=== PATIENT | female | born 1980 | race Caucasian/White ===

== ENCOUNTER → 2021-12-20 | Outpatient (CLI) | payer BC ==
[2021-12-20 12:23] VITALS: BP 145/89; PULSE 88; RESP 17; TEMP 98.8
--- NOTE | 2021-12-20 13:04 | P.GSHP ---
History of Present Illness H&P Date: 12/20/21 Chief Complaint: abnormal left breast mammogram Jessika is a 41 year old white female seen in consultation for Shobha Aragon with a recent bilateral mammogram showing an abnormality in the left breast. She does not feel anything of concern in either breast. She did have a mastitis following the of her son approximately 14 years ago. She does not complain of any nipple discharge or skin changes. She has never had any surgery on either breast. She is not complaining of any trauma or infection in the breast. Caffeine: 1 diet coke/day nicotine: none chocolate: occasional BCP: 10 years in 20's Family History: maternal grandmother: breast cancer, in her 40's Hormonal History: menarche: 9 , breast fed: yes, age at first : 24 periods regular, LMP last week hormones: none Surgical History: none Medical History: none Social History: nicotine: none; parents smoked when growing up alcohol: occasional drugs: none - Constitutional Constitutional: Denies chills, Denies fever - EENT Eyes: denies blurred vision, denies pain Ears: deny: decreased hearing, tinnitus Ears, nose, mouth and throat: Denies headache, Denies sore throat - Breasts Breasts: bilateral: as per HPI - Respiratory Respiratory: Denies cough, Denies 7 - Gastrointestinal Gastrointestinal: Denies abdominal pain, Denies diarrhea, Denies nausea, Denies vomiting - Genitourinary (Female) Genitourinary: Denies dysuria, Denies hematuria - Menstruation Menstruation: Reports period normal - Musculoskeletal Musculoskeletal: Denies myalgias - Integumentary Integumentary: Denies pruritus, Denies rash - Neurological Neurological: Denies numbness, Denies weakness - Psychiatric Psychiatric: Denies anxiety, Denies depression - Endocrine Endocrine: Denies fatigue, Denies weight change - Hematologic/Lymphatic Comment: none - Allergic/Immunologic Allergic/Immunologic: Reports as per HPI Past Medical History Past Medical History: No Reported History History of Any Multi-Drug Resistant Organisms: None Reported Past Surgical History: No Surgical Hx Reported Past Anesthesia/Blood Transfusion Reactions: No Reported Reaction Additional Past Anesthesia/Blood Transfusion Reaction / Comment(s): No blood transfusion to date (12/11/21) Past Psychological History: No Psychological Hx Reported Smoking Status: Never smoker Past Alcohol Use History: Rare Past Drug Use History: None Reported - Past Family History Mother Additional Family Medical History / Comment(s): maternal grandmother in age 40s from breast cancer Medications and Allergies Home Medications Medication Instructions Recorded Confirmed Type Multivit with Calcium,Iron,Min 1 each PO DAILY 12/11/21 12/20/21 History [Women's Multivitamin] Zinc Sulfate [Orazinc] 25 mg PO DAILY 12/11/21 12/20/21 History Allergies Allergy/AdvReac Type Severity Reaction Status Date / Time No Known Allergies Allergy Verified 12/20/21 12:15 Surgical - Exam Vital Signs Temp Pulse Resp BP 98.8 F 88 17 145/89 12/20/21 12:16 12/20/21 12:16 12/20/21 12:16 12/20/21 12:16 BMI 37.2 - General moderate distress - Eyes normal ocular movement - Neck trachea midline - Respiratory normal respiratory effort, clear to auscultation - Cardiovascular Rhythm: regular Heart Sounds: normal: S1, S2 - Abdomen Abdomen: soft - Integumentary normal turgor - Neurologic no disoriented, no combative - Musculoskeletal normal gait - Psychiatric oriented to time, oriented to person, oriented to place, speech is normal, memory intact Breast Exam: BRA: 38DDD inspection: Bilateral grade 3 ptosis, fungal infection under right breast Palpation: Right breast: Multi-positional exam fibrocystic changes no dominant masses or nodules of concern Right axilla: No adenopathy of concern Left breast: Multi-positional exam fibrocystic changes no dominant masses or nodules of concern Left axilla: No adenopathy of concern Assessment and Plan Assessment: Impression: Radiographic abnormality left breast for which stereotactic biopsy is recommended Fibrocystic breast changes Macromastia Family history of breast cancer Plan: Stereotactic core biopsy left breast Risks and benefits of the procedure discussed with the patient. Risks include but are not limited to bleeding, infection, reaction to the anesthetic. The patient understands that if the findings were to be discordant further biopsy could be recommended. Alternatives such as watchful waiting or resection the operating room are noted but not recommended. CC: Shobha Aragon
== END ==
LOC: WWCWWP 11:45
PROVIDERS: ATTEND Surgery
DX: N60.12 Diffuse cystic mastopathy of left breast (principal); N62 Hypertrophy of breast; Z80.3 Family history of malignant neoplasm of breast

== ENCOUNTER → 2021-12-21 | Day surgery (SDC) | payer BC ==
[2021-12-21 07:21] VITALS: RESP 16
[2021-12-21 09:28] VITALS: BP 122/80; PULSE 80; TEMP 98.5
--- NOTE | 2021-12-21 13:04 | P.PCN ---
Date of Procedure: 12/21/21 Preoperative Diagnosis: Microcalcifications of concern left breast 2 o'clock position posteriorly Postoperative Diagnosis: Same Procedure(s) Performed: Stereotactic core biopsy microcalcifications of concern posterior left breast 2 o'clock position Anesthesia: local Surgeon: Liliya Prajapati Disposition: same day Indications for Procedure: Microcalcifications of concern left breast posterior position at 2:00 Operative Findings: Radiograph of initial specimen did not reveal the calcifications of concern and therefore additional specimens were taken again the calcifications of concern were not seen with certainty the patient was retargeted and the calcifications of concern were noted to be in the specimen Description of Procedure: Jessika is a 41-year-old white female who The screening mammogram was noted to have calcifications of concern in the 2:00 posterior position of the left breast. This had increased in number and stereotactic core biopsy was recommended with a 6 month diagnostic mammogram of the more anteriorly placed calcifications at 2:00. Risk and benefits of the procedure were discussed with the patient and she wished to proceed with stereotactic core biopsy. Risks include but are not limited to bleeding, infection, reaction to the anesthetic. Alternatives such as watchful waiting for resection the operating room were noted but not recommended. The patient was taken to the [facility] core biopsy room. She was placed prone on the lo-rad table. A CC from above approach was utilized. A manager science film was obtained. The calcifications of concern were identified. These were targeted. The breast was prepped using Betadine and 20 mL of 1% lidocaine were used to anesthetize the area of concern. A 9-gauge vacuum-assisted core rotating biopsy needle was driven to the correct coordinates. A prefire film was a taken and the needle was noted to be in the correct location. The needle was fired. Post fire film again revealed the needle to be in the correct location. Core biopsy specimens were obtained. Only 1 small calcification was noted in the specimen and it was felt that the area had not been adequately sampled. The needle was repositioned and additional core biopsies were obtained but again it was felt that the area was not adequately sampled, as no additional calcifications were noted in the specimen. A tri-juliana Top-Hat clip was placed. The clip did however, appear to be in the vicinity of calcifications. Following this secondary to concern that the area had not been adequately sampled an additional manager science film was obtained. The calcifications of concern were noted. The calcifications of concern were again targeted. The breast was again prepped using Betadine. This time approximately 14 mL of 1% lidocaine were used to anesthetize the area of concern. 9-gauge vacuum-assisted core rotated biopsy needle was driven to the correct coordinates. Prefire film was obtained and the needle appeared to be in the correct location. The needle was fired and a post-fire film was obtained showing the needle in the correct location. Specimens were obtained. Radiograph of the specimen did reveal the calcifications of concern. A tri-juliana clip was placed. The location of the tri-juliana clip appeared to be in the vicinity where the calcifications of concern about sampled. Specimens were sent for pathology. The patient will follow-up with Dr. Aleman next week.
--- NOTE | 2021-12-21 13:37 | MM ---
Jessika is a 41-year-old white female who The screening mammogram was noted to have calcifications of concern in the 2:00 posterior position of the left breast. This had increased in number and stereotactic core biopsy was recommended with a 6 month diagnostic mammogram of the more anteriorly placed calcifications at 2:00. Risk and benefits of the procedure were discussed with the patient and she wished to proceed with stereotactic core biopsy. Risks include but are not limited to bleeding, infection, reaction to the anesthetic. Alternatives such as watchful waiting for resection the operating room were noted but not recommended. The patient was taken to the [facility] core biopsy room. She was placed prone on the lo-rad table. A CC from above approach was utilized. A clip loading machine feeder film was obtained. The calcifications of concern were identified. These were targeted. The breast was prepped using Betadine and 20 mL of 1% lidocaine were used to anesthetize the area of concern. A 9-gauge vacuum-assisted core rotating biopsy needle was driven to the correct coordinates. A prefire film was a taken and the needle was noted to be in the correct location. The needle was fired. Post fire film again revealed the needle to be in the correct location. Core biopsy specimens were obtained. Only 1 small calcification was noted in the specimen and it was felt that the area had not been adequately sampled. The needle was repositioned and additional core biopsies were obtained but again it was felt that the area was not adequately sampled, as no additional calcifications were noted in the specimen. A tri-juliana Top-Hat clip was placed. The clip did however, appear to be in the vicinity of calcifications. Following this secondary to concern that the area had not been adequately sampled an additional clip loading machine feeder film was obtained. The calcifications of concern were noted. The calcifications of concern were again targeted. The breast was again prepped using Betadine. This time approximately 14 mL of 1% lidocaine were used to anesthetize the area of concern. 9-gauge vacuum-assisted core rotated biopsy needle was driven to the correct coordinates. Prefire film was obtained and the needle appeared to be in the correct location. The needle was fired and a post-fire film was obtained showing the needle in the correct location. Specimens were obtained. Radiograph of the specimen did reveal the calcifications of concern. A tri-juliana clip was placed. The location of the tri-juliana clip appeared to be in the vicinity where the calcifications of concern about sampled. Specimens were sent for pathology. The patient will follow-up with Dr. Aleman next week. BEATRICE
== END ==
LOC: RADMAMWWP 06:50
PROVIDERS: ATTEND Surgery
DX: N60.12 Diffuse cystic mastopathy of left breast (principal); R92.1 Mammographic calcification found on diagnostic imaging of breast
CPT/HCPCS: 19081; A4648; J2001; 88305

== ENCOUNTER → 2021-12-27 | Outpatient (CLI) | payer BC ==
[2021-12-27 10:50] VITALS: BP 131/86; PULSE 92; RESP 16; TEMP 98.2
--- NOTE | 2021-12-27 11:05 | P.PN ---
Subjective Progress Note Date: 12/27/21 Principal diagnosis: fat necrosis of the left breast Jessika is a 41 year old female status post stero biopsy of the left breast on 12-21-21. Pathology showed fibrocystic changes site A, and fat necrosis/scar at site B with calcifications. This was felt to be benign specific. She tolerated the procedure without difficulty. Objective - Vital Signs Vital signs: Vital Signs Temp 98.2 F 12/27/21 10:44 Pulse 92 12/27/21 10:44 Resp 16 12/27/21 10:44 BP 131/86 12/27/21 10:44 Pulse Ox 97 12/27/21 10:44 Intake & Output 12/26/21 12/27/21 12/27/21 18:59 06:59 18:59 Weight 95.254 kg - Constitutional General appearance: Present: cooperative - EENT Eyes: Present: edentulous ENT: Present: hearing grossly normal - Neck Neck: Present: normal ROM - Respiratory Respiratory: bilateral: CTA - Cardiovascular Rhythm: regular Heart sounds: normal: S1, S2 - Integumentary Integumentary Comment(s): Abscesses site left breast mild ecchymosis, no evidence of hematoma or infection Assessment and Plan Assessment: Impression: Patient status post stereotactic core biopsy left breast fibrocystic changes/fat necrosis/scar no evidence of malignancy Plan: Left breast repeat mammogram in 6 months with a physician exam at that time CC: Shobha Castelan
== END ==
LOC: WWCWWP 10:35
PROVIDERS: ATTEND Surgery
DX: N60.12 Diffuse cystic mastopathy of left breast (principal); N64.1 Fat necrosis of breast; R92.1 Mammographic calcification found on diagnostic imaging of breast

== ENCOUNTER 2022-02-08 06:56 | Day surgery (SDC) | payer BC ==
[2022-02-05 12:20] VITALS: BMI 38.9
--- NOTE | 2022-02-07 19:28 | P.GSHP ---
History of Present Illness H&P Date: 02/07/22 Chief Complaint: Left renal colic The patient is a 41-year-old white female with no prior history of urolithiasis. Earlier this month, she began to experience left flank discomfort which became severe on 01/31/2022. CT scan at that time showed moderate to severe left hydronephrosis due to an 8 x 10 mm left proximal ureteral calculus. There was also evidence of mild right hydronephrosis. No right-sided calculi were seen. Treatment options include medical expulsion therapy, extracorporal shockwave lithotripsy (ESWL), and ureteroscopy with laser lithotripsy. She has elected to undergo the latter. - Constitutional Constitutional: Denies chills, Denies fever - Gastrointestinal Gastrointestinal: Reports nausea, Reports vomiting - Genitourinary (Female) Genitourinary: Reports flank pain, Reports kidney stones, Denies dysuria, Denies hematuria Past Medical History Past Medical History: No Reported History Additional Past Medical History / Comment(s): KIDNEY STONES History of Any Multi-Drug Resistant Organisms: None Reported Past Surgical History: No Surgical Hx Reported Additional Past Surgical History / Comment(s): left breast stereotactic core biopsy 12/2021 Past Anesthesia/Blood Transfusion Reactions: No Reported Reaction Additional Past Anesthesia/Blood Transfusion Reaction / Comment(s): No blood transfusion to date (12/11/21) Smoking Status: Never smoker - Past Family History Mother Family Medical History: No Reported History Additional Family Medical History / Comment(s): maternal grandmother in age 40s from breast cancer Medications and Allergies Home Medications Medication Instructions Recorded Confirmed Type Multivit with Calcium,Iron,Min 1 each PO DAILY 12/11/21 02/05/22 History [Women's Multivitamin] HYDROcodone/APAP 5-325MG [Ohlman 1 tab PO Q6HR PRN 02/05/22 02/05/22 History 5-325] Allergies Allergy/AdvReac Type Severity Reaction Status Date / Time No Known Allergies Allergy Verified 02/05/22 12:14 Surgical - Exam - General well developed, well nourished, moderate distress - Neck no masses, trachea midline - Respiratory normal respiratory effort - Abdomen Soft, non-distended, with no palpable mass. There is left-sided tenderness and left CVA tenderness, without guarding or rebound. - Psychiatric oriented to time, oriented to person, oriented to place, speech is normal, memory intact Results - Imaging CT scan - abdomen: report reviewed Assessment and Plan (1) Calculus of ureter Status: Acute Code(s): N20.1 - CALCULUS OF URETER SNOMED Code(s): 32834699 (2) Hydronephrosis with renal and ureteral calculous obstruction Status: Acute Code(s): N13.2 - HYDRONEPHROSIS WITH RENAL AND URETERAL CALCULOUS OBSTRUCTION SNOMED Code(s): 644267494 Plan: Cystoscopy, bilateral retrograde pyelograms, left ureteroscopy with Holmium laser lithotripsy and possible stone basketing, left ureteral stent insertion. If the right retrograde pyelogram reveals an abnormality, right ureteroscopy will be performed as well. The rationale for the procedure has been reviewed in detail with the patient. Potential risks were also discussed, including anesthesia, bleeding, infection, and ureteral injury.
[~2022-02-08 06:56] MED LIST: DEXAMETHASONE SOD PHOSPHATE 4 MG/ML 1 ML VIAL IV ONE; HYDROmorphone 0.5 MG/0.5 ML SYRINGE IVP PRN; LACTATED RINGERS 1,000 ML IV SCH; LIDOCAINE 1% (10MG/ML) FOR IV START INTRADERMA PRN; MIDAZOLAM 2 MG/2 ML VIAL IV PRN; ONDANSETRON 4 MG/2 ML VIAL IVP ONE
--- NOTE | 2022-02-08 07:14 | XR ---
EXAMINATION TYPE: XR KUB DATE OF EXAM: 02/08/2022 7:07 AM CLINICAL HISTORY: Left-sided kidney stone. TECHNIQUE: Two supine KUB images of the abdomen are obtained. COMPARISON: Outside CT 8 days earlier. FINDINGS: Dominant 12 mm central calculus left kidney redemonstrated slightly more superior and later al in position suggesting may have retrograded passed back into the left renal pelvis. Overall nonobstructive bowel gas pattern. Osseous structures are intact. IMPRESSION: As above.
[2022-02-08 07:30] VITALS: TEMP 98.1
[2022-02-08] MEDS ORDERED: MIDAZOLAM 2 MG/2 ML VIAL ONE (08:46)
[2022-02-08] MEDS ORDERED: PROPOFOL 10 MG/ML 20 ML VIAL IV ONE (08:46)
[2022-02-08] MEDS ORDERED: LIDOCAINE 1% INJ 10MG/ML (20 ML MDV) ONE (08:46)
[2022-02-08] MEDS ORDERED: ePHEDrine 50 MG/ML 1 ML VIAL ONE (08:46)
[2022-02-08] MEDS ORDERED: fentaNYL (PF) 50 MCG/ML 2 ML AMP ONE (08:46)
[2022-02-08] MEDS ORDERED: KETOROLAC 15 MG/ML 1 ML VIAL ONE (08:46)
[2022-02-08] MEDS ORDERED: IOPAMIDOL-370 50ML BTL MISCELLANE ONE (09:09)
[2022-02-08] MEDS ORDERED: LACTATED RINGERS 1,000 ML IV ONE (10:32)
--- NOTE | 2022-02-08 10:39 | P.OP ---
Date of Procedure: 02/08/22 Preoperative Diagnosis: Bilateral hydronephrosis, left ureteral calculus Postoperative Diagnosis: Same Procedure(s) Performed: Cystoscopy, bilateral retrograde pyelograms, left ureteroscopy with Holmium laser lithotripsy and stone basketing, left ureteral stent insertion Anesthesia: TOMIA Surgeon: Uday Don Estimated Blood Loss (ml): 10 IV fluids (ml): 900 Pathology: other (Calculus fragments, sent for chemical analysis) Condition: stable Disposition: PACU Indications for Procedure: The patient is a 41-year-old white female with no prior history of urolithiasis. Earlier this month, she began to experience left flank discomfort which became severe on 01/31/2022. CT scan at that time showed moderate to severe left hydronephrosis due to an 8 x 10 mm left proximal ureteral calculus. There was also evidence of mild right hydronephrosis. No right-sided calculi were seen. Treatment options include medical expulsion therapy, extracorporal shockwave lithotripsy (ESWL), and ureteroscopy with laser lithotripsy. She has elected to undergo the latter. Operative Findings: Calculus successfully fragmented and removed via stone basketing. Description of Procedure: The patient was taken to the operating room and placed in the dorsolithotomy position, with legs supported in Todd stirrups. The external genitalia was prepped and draped sterilely. The 30 lens was used to introduce the 21-Swiss Saeed cystoscopic sheath through the urethra and into the bladder under direct vision. The bladder was examined in its entirety. Both ureteral orifices were normal anatomic location and configuration. No tumors or foreign bodies were seen. Using a 10-Swiss cone-tipped catheter, bilateral retrograde pyelograms were performed. The course of the right ureter appeared normal. There was mild right hydronephrosis, which appeared to be due to partial UPJ obstruction. No filling defects were seen. Within the left proximal ureter was some irregularity, which I presumed to be the site of calculus impaction, though some contrast passed into the kidney. A 0.038 inch Glidewire was passed through the cystoscope. The ureteral orifice was cannulated, and the Glidewire was advanced up to the renal pelvis. The Glidewire did not meet any resistance as it was passed up to the renal pelvis. The cystoscope was removed, and an 11/13-Swiss ureteral access catheter was passed over the wire, up to the proximal ureter. The flexible ureteroscope was then passed through the ureteral access catheter sheath and advanced under direct vision. Edema of the left proximal ureter was identified, presumably where the calculus had been impacted. However, the calculus was located within a lower pole calyx. The 272 micron Holmium laser probe was passed through the ureteroscope, and lithotripsy was performed. The calculus was fairly dense. Initially, a dusting mode was utilized but ultimately the calculus began to fragment and it was fragmented into fragments less than or equal to 2-3 mm in size. A 1.9-Swiss nitinol basket was then used to remove each of these fragments, which were saved and sent for chemical analysis. Once all calculus fragments had been removed, the ureteroscope was slowly withdrawn. There was no evidence of ureteral trauma, though as stated there was edema within the proximal ureter presumably due to stone impaction. The Glidewire was passed through the ureteroscope, which was removed along with the ureteral access catheter sheath. The Glidewire was backloaded into the cystoscope, which was passed into the bladder. A 24 cm, 4.8-Swiss double-J ureteral stent was placed over the wire. Proper stent positioning was verified fluoroscopically and endoscopically. The bladder was emptied and the cystoscope removed. The patient tolerated the procedure well and was taken to the recovery room in stable condition. NAVIN MENDOZA Report: Procedure Acuity: Semi-Urgent Stone Size and Location: Left proximal ureter, 8 x 10 mm Ureteral Dilation: No Ureteral Access Sheath Used: Yes Stone Sent for Analysis: Yes All Stones/Fragments Were Removed with a Basket: Yes Complications: No Preoperative Antibiotics Given: Yes Stent Placed: Yes If Stent Placed, Was String Left Attached: No If Stent Placed, When is it to be Removed: 10 days Discharge Medications: Toradol, tolerodine ER
--- NOTE | 2022-02-08 10:48 | FL ---
EXAMINATION TYPE: FL urography retrograde DATE OF EXAM: 02/08/2022 COMPARISON: NONE HISTORY: Fluoroscopy time. Fluoroscopy was provided to the referring clinician.
[2022-02-08 11:05] VITALS: RESP 16
[2022-02-08 11:47] VITALS: BP 147/84; PULSE 95
== END 2022-02-08 12:05 | disposition home or self-care (01) ==
LOC: OR 06:56
PROVIDERS: ATTEND Urology
DX: N13.2 Hydronephrosis with renal and ureteral calculous obstruction (principal); Z80.3 Family history of malignant neoplasm of breast
CPT/HCPCS: 81025; 82365; 74420; 74018; 52356; C2625; C1758; C1769; J2250; J1100; J0690; J2405; J2001; J3010; J1885; J2704; Q9967